=== PATIENT | female | born 1970 | race Hispanic/Latino ===

== ENCOUNTER 2016-07-20 06:13 | Day surgery (SDC) | payer OTHER ==
[2016-07-19 09:51] VITALS: BMI 22.3
[2016-07-20] MEDS ORDERED: Bupivacaine HCl 0.25% PF (30 ml) Inj ONE (07:06)
[2016-07-20] MEDS ORDERED: Absorbable Gelatin Sponge Size 100 ONE (07:07)
[2016-07-20] MEDS ORDERED: Lactated Ringer's 1,000 ML IV ONE ×2 (07:35→08:30)
--- NOTE | 2016-07-20 07:39 | CP.PCM.CON ---
History of Present Illness - History of Present Illness History of Present Illness: 46 yo female presents with longstanding hx LBP radiaiting BLE > right with weakness,paresthesias and difficulty ambulating,uses no assistive devices,prior lumbar laminectomy and fusion [address] Myers with resolution of most symptoms with therapy,progressive return of backpain x 6 mos without radiation, increasing right leg weakness,no relief with epidural injections,pain meds or Rx ,referred back to neurosurgeon by PMD,repeat imaging showing recurrent lumbar spondylosis and instability,denies fall,pelvic paresthesias,bowel/bladder incontinance. Review of Systems - Review of Systems Systems not reviewed;Unavailable: Acuity of Condition - Musculoskeletal Musculoskeletal: Muscle Weakness - Neurological Neurological: As Per HPI - Endocrine Additional Comments: Hx hypothyroidism - Hematologic/Lymphatic Additional comments: last used Aleve > 1 week ago Past Patient History - Infectious Disease Hx of Infectious Diseases: None - Tetanus Immunizations Tetanus Immunization: Unknown - Past Medical History & Family History Past Medical History?: Yes - Past Social History Smoking Status: Never Smoked Chewing Tobacco Use: No Cigar Use: No Occupation: sales development executive Alcohol: Social Drugs: Denies Home Situation {Lives}: With Family Domestic Violence: Negative - CARDIAC Hx Cardiac Disorders: Yes Hx Heart Murmur: Yes - PULMONARY Hx Respiratory Disorders: No - NEUROLOGICAL Hx Neurological Disorder: No - HEENT Hx HEENT Problems: No - RENAL Hx Chronic Kidney Disease: No - ENDOCRINE/METABOLIC Hx Endocrine Disorders: Yes Hx Hypothyroidism: Yes - HEMATOLOGICAL/ONCOLOGICAL Hx Blood Disorders: No Hx Blood Transfusions: No - INTEGUMENTARY Hx Dermatological Problems: No - MUSCULOSKELETAL/RHEUMATOLOGICAL Hx Musculoskeletal Disorders: Yes Hx Back Pain: Yes Hx Falls: No - GASTROINTESTINAL Hx Gastrointestinal Disorders: Yes Hx Gastroesophageal Reflux: Yes (GERD) - GENITOURINARY/GYNECOLOGICAL Hx Genitourinary Disorders: No - PSYCHIATRIC Hx Emotional Abuse: No Hx Physical Abuse: No - SURGICAL HISTORY Hx Surgeries: Yes Other/Comment: ABDOMINAL PLASTY.SPINAL FUSION - ANESTHESIA Hx Anesthesia: Yes Hx Anesthesia Reactions: No Hx Malignant Hyperthermia: No Has any member of the family had a problem w/ anesthesia?: No Meds Allergies/Adverse Reactions: Allergies Allergy/AdvReac Type Severity Reaction Status Date / Time No Known Allergies Allergy Verified 09/22/15 06:42 Physical Exam - Constitutional Appears: Well, Non-toxic, No Acute Distress - Head Exam Head Exam: ATRAUMATIC, NORMAL INSPECTION, NORMOCEPHALIC - Eye Exam Eye Exam: EOMI, Normal appearance, PERRL Pupil Exam: NORMAL ACCOMODATION - ENT Exam ENT Exam: Mucous Membranes Moist - Neck Exam Neck exam: Positive for: Normal Inspection - Respiratory Exam Respiratory Exam: Clear to Auscultation Bilateral, NORMAL BREATHING PATTERN - Cardiovascular Exam Cardiovascular Exam: REGULAR RHYTHM, +S1, +S2 - GI/Abdominal Exam GI & Abdominal Exam: Normal Bowel Sounds, Soft - Rectal Exam Rectal Exam: Deferred Additional comments: no pelvic paresthesias - Extremities Exam Extremities exam: Positive for: normal inspection, pedal pulses present - Back Exam Back exam: vertebral tenderness - Neurological Exam Neurological exam: Alert, Oriented x3 Additional comments: MARROQUIN x 4 antigravity with good motor strength,4/5 weakness in right quad/ehl, sensation intact,depressed DTR's - Psychiatric Exam Psychiatric exam: Normal Affect, Normal Mood - Skin Skin Exam: Dry, Intact, Normal Color Results - Vital Signs Recent Vital Signs: Last Vital Signs Temp 98.2 F 07/20/16 06:55 Pulse 66 07/20/16 07:00 Resp 18 07/20/16 06:55 BP 136/77 07/20/16 06:55 Pulse Ox 97 07/20/16 06:55 - Impressions Impression: MRI results reviewed by Dr. Myers Assessment & Plan - Assessment and Plan (Free Text) Assessment: 46 yo female with recurrent lumbar spondylosis L2-3,prior L3-S1 laminectomy and fusion/RLE weakness Plan: Pt here for proposed Re exploration of prior lumbar laminectomy and fusion, possible L2-3 laminectomy with instrumented fusion,surgical and non surgical options d/w pt,due to worsening of symptoms and ADL's being effected, pt wishes to proceed with surgical intervention,risks and benefits of surgery d/w pt, expressed understanding,will be admitted post op for observation and PT.
[2016-07-20] MEDS ORDERED: Phenylephrine 10 mg/ml Inj ONE (07:52)
[2016-07-20] MEDS ORDERED: Succinylcholine 200 mg/10 ml Inj IV ONE (07:52)
[2016-07-20] MEDS ORDERED: Rocuronium 10 mg/ml (5 ml) ONE (07:52)
[2016-07-20] MEDS ORDERED: Propofol 10 mg/ml Inj (20 ML) ONE (07:52)
[2016-07-20] MEDS ORDERED: Midazolam 2 MG/2 ML VIAL ONE (07:52)
[2016-07-20] MEDS ORDERED: ePHEDrine 50 mg/ml Inj ONE (07:52)
[2016-07-20] MEDS ORDERED: Lidocaine 2% w Epi 1:200,000 Pf Inj IJ ONE (08:00)
[2016-07-20] MEDS ORDERED: Dexamethasone 4 mg/1 ml ONE (08:01)
[2016-07-20] MEDS ORDERED: Neostigmine Methylsulfate 2 MG/2 ML ML IV ONE (08:02)
[2016-07-20] MEDS ORDERED: HEMOSTATIC MATRIX 10 ML DIS.NEEDLE TOP ONE (08:15)
[2016-07-20] MEDS ORDERED: Bupivacaine HCl 0.25% PF (30 ml) Inj IJ ONE ×2 (08:16→08:30)
[2016-07-20] MEDS ORDERED: Absorbable Gelatin Sponge Size 12-7 TP ONE (08:25)
[2016-07-20] MEDS ORDERED: Thrombin Topical 5,000 IU Spray Kit TOP ONE (08:25)
[2016-07-20] MEDS: HYDROmorphone 0.5 mg/0.5 ml ISec IVP PRN ×4 (09:10→10:40)
[2016-07-20 10:47] VITALS: RESP 18
--- NOTE | 2016-07-20 11:07 | RAD ---
PROCEDURE: Intraoperative Fluoroscopy. HISTORY: LUMBAR LAMINECTOMY FINDINGS: Fluoroscopic assistance was provided for . Approximately 8.1 seconds of fluoroscopy time utilized during this procedure. Radiation dose = 3.18 mGy
[2016-07-20] MEDS ORDERED: Oxycodone/Acetaminophen 5/325 mg Tab PO PRN (11:10)
[2016-07-20] MEDS ORDERED: Lactated Ringer's 1,000 ML IV SCH (11:15)
[2016-07-20] MEDS ORDERED: Oxycodone/Acetaminophen 5/325 mg Tab PO ONE (13:20)
[2016-07-20 15:29] VITALS: BP 114/68; PULSE 82; TEMP 98; O2SAT 98
--- NOTE | 2016-07-20 15:48 | CP.PCM.DIS ---
Provider - Provider Attending physician: Manfred Myers MD Primary care physician: Manfred Myers MD Time Spent in preparation of Discharge (in minutes): 30 Diagnosis - Discharge Diagnosis (1) Lumbar spondylosis Status: Chronic Priority: Medium Hospital Course - Lab Results Lab Results: Most Recent Lab Values Blood Type B NEGATIVE 07/20/16 07:13 Blood Type Confirm B NEGATIVE 07/20/16 10:08 Antibody Screen Negative 07/20/16 07:13 BBK History Checked No verified bt 07/20/16 07:13 Discharge Exam - Head Exam Head Exam: ATRAUMATIC, NORMAL INSPECTION, NORMOCEPHALIC - Eye Exam Eye Exam: EOMI, Normal appearance, PERRL Pupil Exam: NORMAL ACCOMODATION - ENT Exam ENT Exam: Mucous Membranes Moist - Cardiovascular Exam Cardiovascular Exam: REGULAR RHYTHM, +S1, +S2 - GI/Abdominal Exam GI & Abdominal Exam: Soft - Extremities Exam Extremities exam: normal inspection, pedal pulses present - Back Exam Additional comments: wound C/D/I,no drainage - Neurological Exam Neurological exam: Alert, Oriented x3 Additional comments: [place] x 4 antigravity with good strength,sensation intact - Psychiatric Exam Psychiatric exam: Normal Affect, Normal Mood - Skin Skin Exam: Dry Discharge Plan - Follow Up Plan Condition: GOOD Disposition: HOME/ ROUTINE Patient education suggested?: Yes Additional Instructions: 46 yo female post op Decompressive Lumbar Laminectomy L2-3,neurologically stable ,incision C/D/I,AF.VSS,pain controlled with PO pain meds,caren Po,ambulating with some asst,pt stable for d/c home with and f/u with Dr. Myers,wound care instructions d/w pt,pain scripts given and instructed to call the office for f/ u appt,pt expressed understanding,all d/w Dr. Myers. Referrals: Manfred Myers MD [Primary Care Provider] -
--- NOTE | 2016-07-21 07:05 | OP ---
PROCEDURE DATE: 07/20/2016 PREOPERATIVE DIAGNOSIS: Lumbar spondylosis at L2-3. POSTOPERATIVE DIAGNOSIS: Lumbar spondylosis at L2-3. PROCEDURE: Reexploration of L3 to S1 lumbar laminectomy fusion instrumentation , L2-3 lumbar laminectomy, medial facetectomy, decompression . L2-L4 posterolateral fusion. SURGEON: Dr. Myers. DIRECTOR INTERNAL AUDIT: PRIYA Mart. Vanesa Piper stayed throughout the case from the beginning to the end and helped perform the surgery. Fluoroscopy has been used. Microscope has been used. DESCRIPTION OF PROCEDURE: The patient was brought to the operating room, administered general endotracheal anesthesia, placed in a prone position on a Juan frame. Care was taken to protect all the pressure points. Back of the lumbar area thoroughly prepped and draped in standard sterile manner after marking for skin incision for lumbar laminotomy and fusion at L2-3. After prepping and draping the area, skin has been incised. Bleeding skin areas have been controlled by bipolar mend worker. By using a Bovie mend worker, paraspinal muscles have been detached from attachment of spinous process and lamina of L2- 3. Identification of levels has been done with the help of fluoroscopy. At this point, the previously placed fusion has been exposed at L2-S1 and exposure has been done of the rods in the lateral aspect. At this point, by using a Leksell rongeur, the spinous processes of L2 and L3 have been removed. By using the high speed drill, the lamina have been drilled to actual thickness. By using a fine Kerrison punch, thinned out surrounding lamina, medial part of the facets and the buckled and thickened ligamentum flavum has been removed at L2-3. At this point, lateral aspect of facet joint, transverse process have been decorticated and the posterolateral fusion has been achieved from L2-L4 bilaterally. After that, hemostasis best achieved. Fascia closed, intraspinous ligament, spinous process with 1-0 Vicryl, subcutaneous with 3-0 Vicryl. Skin has been _closed intradermally ___. The patient tolerated the procedure well. After procedure, mobilized to the recovery room in stable condition. Manfred Myers MD cc: [id number] TT: 07/21/2016 07:05:11 tn MTDD
== END 2016-07-20 15:25 | disposition home or self-care (01) ==
LOC: H.OPSURG 06:13
PROVIDERS: ATTEND Neurological Surgery
DX: M47.16 Other spondylosis with myelopathy, lumbar region (principal); E03.9 Hypothyroidism, unspecified